=== PATIENT | female | born 1990 | race Two or more races ===

== ENCOUNTER 2024-10-27 19:45 | Emergency (ER) | payer OTHER ==
[~2024-10-27] VITALS: Ht 157.5 cm; Wt 65.8 kg
[2024-10-27 21:20] VITALS: BP 109/78; PULSE 77; RESP 16; TEMP 98.2; O2SAT 98
--- NOTE | 2024-10-27 22:12 | DVH ---
CLINICAL INDICATION: Fall/trauma TECHNIQUE: 3 radiographic views of the right hand were obtained. Comparison: None FINDINGS/IMPRESSION: There is no evidence of acute fracture or dislocation. The visualized joint space is well maintained. The alignment is anatomical. There is no radiopaque foreign body. HS:Y
--- NOTE | 2024-10-27 22:14 | DVH ---
CLINICAL INDICATION: Fall/trauma TECHNIQUE: XY R WRIST 3+ VIEW XRAY Comparison: None FINDINGS: No osseous or joint abnormality with no fracture or dislocation. Joint spaces are normal. IMPRESSION: No abnormality demonstrated.
[2024-10-27] MEDS ORDERED: IBUP-1455 PO (22:49)
--- NOTE | 2024-10-27 22:49 | ED.PDOC ---
Musculoskeletal HPI Comments This patient is a pleasant 34-year-old female who arrives to the ED today for evaluation of right hand pain status post fall yesterday. Patient has a mechanical ground level fall yesterday and landed on her right hand. Patient states it subsequent to that event, she has had pain, swelling and bruising. Patient denies any head trauma. Vital signs were stable on arrival. No blood loss. Chief Complaint: Upper Extremity Time Seen by MD: 20:17 Reviewed Notes: Nurses Notes Allergies: Coded Allergies: Sulfamethoxazole w/Trimethoprim (Verified Allergy, Intermediate, 08/09/13) Information Source: Patient Mode of Arrival: Ambulatory Location: Right Extremity Location: Hand, Wrist Timing: Days Prehospital treatment: None Severity: Moderate Able to Move Extremity: Yes Bear Weight: Fully Pain: Moderate Hand Dominance: Right Mechanism: FOOSH Circumstances: Fall Onset of Symptoms: After Trauma Symptoms: Swelling, Pain DVT Risk Factors: NONE Past Medical History PAST MEDICAL HISTORY: Denies Surgical History: Denies all surgeries OTHER SPORTS COACH OR INSTRUCTOR History: No Pertinent OTHER SPORTS COACH OR INSTRUCTOR History Family History Family History: Unknown Social History Smoker: Non-Smoker Alcohol: Denies ETOH Use Drugs: Denies Drug Use Lives In: Home Constitutional: denies: chills, diaphoresis, fatigue, fever, malaise, sweats, weakness, others EENTM: denies: blurred vision, double vision, ear bleeding, ear discharge, ear drainage, ear pain, ear ringing, eye pain, eye redness, hearing loss, mouth pain, mouth swelling, nasal discharge, nose bleeding, nose congestion, nose mono n, photophobia, tearing, throat pain, throat swelling, voice changes, others Respiratory: denies: cough, hemoptysis, orthopnea, SOB at rest, shortness of breath, SOB with excertion, stridor, wheezing, others Cardiovascular: denies: chest pain, dizzy spells, diaphoresis, Dyspnea on exertion, edema, irregular heart beat, left arm pain, lightheadedness, palpitations, PND, syncope, others Gastrointestinal: denies: abdomen distended, abdominal pain, blood streaked bowels, constipated, diarrhea, dysphagia, difficulty swallowing, hematemesis, melena, nausea, poor appetite, poor fluid intake, rectal bleeding, rectal pain, vomiting, others Genitourinary: denies: abnormal vagina bleeding, burning, dyspareunia, dysuria, flank pain, frequency, hematuria, incontinence, pain, , vagina discharge, urgency, others Neurological: denies: dizziness, fainting, headache, left sided numbness, left sided weakness, numbness, paresthesia, pre-existing deficit, right sided numbness, right sided weakness, seizure, speech problems, tingling, tremors, weakness, others Musculoskeletal: reports: others (Right hand and right wrist pain); denies: back pain, gout, joint pain, joint swelling, muscle pain, muscle stiffness, neck pain Integumetry: denies: bruises, change in color, change in hair/nails, dryness, laceration, lesions, lumps, rash, wounds, others Allergic/Immunocompromised: denies: Difficulty Healing, Frequent Infections, Hives, Itching, others Hematologic/Lymphatic: denies: anemia, blood clots, easy bleeding, easy bruising, swollen glands, others Endocrine: denies: excessive hunger, excessive sweating, excessive thirst, excessive urination, flushing, intolerance to cold, intolerance to heat, unexplained weight gain, unexplained weight loss, others Psychiatric: denies: anxiety, bipolar disorder, depression, hopeless, panic disorder, schizophrenia, sleepless, suicidal, others Physical Exam General Appearance: Mild Distress (Patient is in moderate distress due to wrist pain concerns. Patient declined any pain medication. Patient states that as long she does not move of the hand or wrist), Normal HEENT: Normal ENT Inspection, Pharynx Normal, TMs Normal Neck: Full Range of Motion, Non-Tender, Normal, Normal Inspection Respiratory: Chest Non-Tender, Lungs Clear, No Accessory Muscle Use, No Respiratory Distress, Normal Breath Sounds Cardiovascular: No Edema, No JVD, No Murmur, No Gallop, Normal Peripheral Pul ses, Regular Rate/Rhythm Breast Exam: Deferred Gastrointestinal: No Organomegaly, Non Tender, No Pulsatile Mass, Normal Bowel Sounds, Soft Genitalia: Deferred Pelvic: Deferred Rectal: Deferred Extremities: Other (Patient reveals edema and ecchymosis noted to the right thenar and hypothenar eminence as well as the right thumb extending into the right wrist ventral and mild dorsal aspect. Wound [id number] reduced range of motion throughout. Distal neurovascularly intact.) Neurologic: Alert, No Motor Deficits, Normal Affect, Normal Mood, No Sensory Deficits Cerebellar Function: Normal Reflexes: Normal Skin: Dry, Normal Color, Warm Lymphatic: No Adenopathy Was a procedure done? Was a procedure done?: No Differential Diagnosis EXT Differential Diagnosis: Fracture, Sprain, Contusion, Strain X-Ray, Labs, Meds, VS Vital Signs Date Time Temp Pulse Resp B/P (MAP) Pulse Ox O2 Delivery O2 Flow Rate FiO2 10/27/24 21:20 77 16 98 Room Air* 0 21 10/27/24 21:20 98.2 77 14 109/78 (88) 99 98.2 10/27/24 20:55 98.2 81 12 109/78 (88) 99 98.2 X-Ray, Labs, Meds, VS Comment All studies performed the ED were evaluated by me personally. Imaging studies of the right wrist and hand were unremarkable for any acute fractures. Patient received an Tristen wrap prior to discharge. Advised ibuprofen as needed for symptomatic pain relief as well as ice therapy. Time of 1ST Reevaluation: 22:47 Reevaluation 1ST: Improved Consultation: PCP Patient Education/Counseling: Diagnosis, Treatment Family Education/Counseling: Diagnosis, Treatment Departure 1 Departure Time of Disposition: 22:48 Impression: Primary Impression: Wrist sprain Additional Impression: Hand contusion Disposition: 01 HOME / SELF CARE / HOMELESS Condition: Stable Additional Instructions: Advised pain medication as needed for symptomatic relief as well as ice therapy. e-Prescriptions Ibuprofen Micronized (Ibuprofen) 800 Mg Tab 800 MG PO Q8HP PRN, #30 TAB Prov: HAYES BEACH PAC 10/27/24 Discharged With: Self, Friend Critical Care Note Critical Care Time?: No Stability Stability form required: No Heart Score Heart Score: Heart Score Response (Comments) Value History N/A 0 EKG N/A 0 Age N/A 0 Risk Factors N/A 0 Troponin N/A 0 Total 0 HAYES BEACH PAC October 27, 2024 22:49
== END 2024-10-27 23:38 | disposition home or self-care (01) ==
LOC: ER 19:45
DX: S63.591A Other specified sprain of right wrist, initial encounter (principal); S60.221A Contusion of right hand, initial encounter; Z88.1 Allergy status to other antibiotic agents; Z88.2 Allergy status to sulfonamides; W18.39XA Other fall on same level, initial encounter; Y93.89 Activity, other specified; Y92.89 Other specified places as the place of occurrence of the external cause; Y99.8 Other external cause status
CPT/HCPCS: 73110; 73130

== ENCOUNTER 2025-01-01 16:10 | Emergency (ER) | payer MEDICAID ==
[~2025-01-01] VITALS: Ht 157.5 cm; Wt 64.0 kg
[~2025-01-01 16:10] MED LIST: IBUP-1455 PO
[2025-01-01 16:21] VITALS: BP 119/78; PULSE 73; RESP 16; TEMP 98.7; O2SAT 99
--- NOTE | 2025-01-01 16:33 | ED.PDOC ---
History of Present Illness HPI Comments 34F presents to the ER w/ no prior MHx associated to the c/c of a fall. Pt reports on walking down her stairs with her socks on and at the bottom of the hardwood floors the pt slipped/ fell landing on her left upper extremity for which all happened 2 days ago at 2130. Pt states on having left wrist/ rib pain with bruising on the right side of the rib and left wrist. Denies chills, fever, N/V/D, SOB, CP. Chief Complaint: Fall Injury Time Seen by MD: 16:25 Reviewed Notes: Nurses Notes, Medications, Allergies Allergies: Coded Allergies: Sulfamethoxazole w/Trimethoprim (Verified Allergy, Intermediate, 08/09/13) Home Meds Active Scripts Ibuprofen Micronized (Ibuprofen) 800 Mg Tab, 800 MG PO Q8HP PRN, #30 TAB Prov:HAYES BEACH Alicia PAC 10/27/24 Information Source: Patient Severity: Moderate Timing: Days Duration: Since onset Prehospital treatment: None Past Medical History PAST MEDICAL HISTORY: Denies Surgical History: Denies all surgeries PIPE FITTER MARINE History: No Pertinent PIPE FITTER MARINE History Family History Family History: Reviewed,noncontributory to illness, Unknown Social History Smoker: Non-Smoker Alcohol: Denies ETOH Use Drugs: Denies Drug Use Lives In: Home Constitutional: reports: others (left hand/right side of the rib pain); denies: chills, diaphoresis, fatigue, fever, malaise, sweats, weakness EENTM: denies: blurred vision, double vision, ear bleeding, ear discharge, ear drainage, ear pain, ear ringing, eye pain, eye redness, hearing loss, mouth pain, mouth swelling, nasal discharge, nose bleeding, nose congestion, nose pain, photophobia, tearing, throat pain, throat swelling, voice changes, others Respiratory: denies: cough, hemoptysis, orthopnea, SOB at rest, shortness of breath, SOB with excertion, stridor, wheezing, others Cardiovascular: denies: chest pain, dizzy spells, diaphoresis, Dyspnea on exertion, edema, irregular heart beat, left arm pain, lightheadedness, palpitations, PND, syncope, others Gastrointestinal: denies: abdomen distended, abdominal pain, blood streaked bowels, constipated, diarrhea, dysphagia, difficulty swallowing, hematemesis, melena, nausea, poor appetite, poor fluid intake, rectal bleeding, rectal pain, vomiting, others Genitourinary: denies: abnormal vagina bleeding, burning, dyspareunia, dysuria, flank pain, frequency, hematuria, incontinence, pain, , vagina discharge, urgency, others Neurological: denies: dizziness, fainting, headache, left sided numbness, left sided weakness, numbness, paresthesia, pre-existing deficit, right sided numbness, right sided weakness, seizure, speech problems, tingling, tremors, weakness, others Musculoskeletal: denies: back pain, gout, joint pain, joint swelling, muscle pain, muscle stiffness, neck pain, others Integumetry: denies: bruises, change in color, change in hair/nails, dryness, laceration, lesions, lumps, rash, wounds, others Allergic/Immunocompromised: denies: Difficulty Healing, Frequent Infections, Hives, Itching, others Hematologic/Lymphatic: denies: anemia, blood clots, easy bleeding, easy bruising, swollen glands, others Endocrine: denies: excessive hunger, excessive sweating, excessive thirst, excessive urination, flushing, intolerance to cold, intolerance to heat, unexplained weight gain, unexplained weight loss, others Psychiatric: denies: anxiety, bipolar disorder, depression, hopeless, panic disorder, schizophrenia, sleepless, suicidal, others All Other Systems: Reviewed and Negative Physical Exam General Appearance: No Apparent Distress, Normal HEENT: Normal ENT Inspection, Pharynx Normal, TMs Normal Neck: Full Range of Motion, Non-Tender, Normal, Normal Inspection Respiratory: Chest Non-Tender, Lungs Clear, No Accessory Muscle Use, No Respiratory Distress, Normal Breath Sounds Cardiovascular: No Edema, No JVD, No Murmur, No Gallop, Normal Peripheral Pulses, Regular Rate/Rhythm, Other (Patient with a bruise center of the chest tender on palpation) Breast Exam: Deferred Gastrointestinal: No Organomegaly, Non Tender, No Pulsatile Mass, Normal Bowel Sounds, Soft Genitalia: Deferred Pelvic: Deferred Rectal: Deferred Extremities: No calf tenderness, Normal capillary refill, Normal inspection, Normal range of motion, No pedal edema, Tender (Left forearm with bruising some swelling and tenderness) Musculoskeletal : Apperance: Normal Neurologic: Alert, guitar repairer II-XII nml as Tested, No Motor Deficits, Normal Affect, Normal Mood, No Sensory Deficits Cerebellar Function: Normal Reflexes: Normal Skin: Dry, Normal Color, Warm Lymphatic: No Adenopathy Was a procedure done? Was a procedure done?: No Differential Dx Considerations may include: Rib fracture versus rib contusion, forearm fracture versus forearm contusion X-Ray, Labs, Meds, VS Vital Signs Date Time Temp Pulse Resp B/P (MAP) Pulse Ox O2 Delivery O2 Flow Rate FiO2 01/01/25 16:21 98.7 73 16 119/78 (92) 99 98.7 [place] [address] Ph: [phone] DIAGNOSTIC IMAGING Diagnostic Imaging Report : [id number] Signed PATIENT: STEPHANIE TERESA ACCT: [id number] UNIT: [id number] : 1990 LOC: ER ROOM / BED: / AGE / SEX: 34 / F ADM STATUS: REG ER SERVICE 1624 ORDERING PHYSICIAN: TONY MOYER MACHINE STRIPER PROCEDURE(s): RIBBI - RIBS BILATERAL REASON: fall ORDER NUMBER(s): [id number], ACCESSION NUMBER(s): [id number] XY RIBS BILATERAL, HISTORY: fall COMPARISON: None None TECHNICAL DATA: 1 view of the chest was obtained. 4 views of the bilateral ribs. FINDINGS: Lines and tubes: None Cardiomediastinal silhouette: normal Pulmonary vasculature: normal Lung expansion: normal Lung airspace: normal Lung interstitium: normal Pleura: normal Pneumothorax: no Bones: Unremarkable Other: no IMPRESSION: No acute intrathoracic abnormality. No acute rib fracture seen. ATED BY: MCKINLEY DIETRICH MD DICTATED DATE/TIME: 01/01/251700 SIGNED BY: MCKINLEY DIETRICH MD SIGNED DATE/TIME: 01/01/251700 CC: [address] [address] Ph: [phone] DIAGNOSTIC IMAGING Diagnostic Imaging Report : [id number] Signed PATIENT: STEPHANIE TERESA ACCT: [id number] UNIT: [id number] : 1990 LOC: ER ROOM / BED: / AGE / SEX: 34 / F ADM STATUS: REG ER SERVICE 162 ORDERING PHYSICIAN: TONY MOYER MACHINE STRIPER PROCEDURE(s): LFOR - L FOREARM XRAY REASON: fall ORDER NUMBER(s): [id number], ACCESSION NUMBER(s): [id number] XY L FOREARM XRAY, INDICATION: fall TECHNICAL DATA: Frontal and lateral views were obtained of the left forearm. COMPARISON: None FINDINGS: There is no osseous abnormality. Soft tissues are normal. IMPRESSION: No acute fracture or dislocation. ATED BY: MCKINLEY DIETRICH MD DICTATED DATE/TIME: 01/01/251699 SIGNED BY: MCKINLEY DIETRICH MD SIGNED DATE/TIME: 01/01/251699 CC: X-Ray, Labs, Meds, VS Comment Patient seen and examined by me. Patient has a large bruise on her left forearm as well as some bruising on her ribs have ordered x-rays of both pending those results. Both x-rays came back negative. Patient was told swelling and bruising was slowly resolved in the next week or so. I will give her a prescription for Motrin.. ORDERING PHYSICIAN: TONY MOYER MACHINE STRIPER PROCEDURE(s): RIBBI - RIBS BILATERAL REASON: fall ORDER NUMBER(s): [id number], ACCESSION NUMBER(s): [id number] XY RIBS BILATERAL, HISTORY: fall COMPARISON: None None TECHNICAL DATA: 1 view of the chest was obtained. 4 views of the bilateral ribs. FINDINGS: Lines and tubes: None Cardiomediastinal silhouette: normal Pulmonary vasculature: normal Lung expansion: normal Lung airspace: normal Lung interstitium: normal Pleura: normal Pneumothorax: no Bones: Unremarkable Other: no IMPRESSION: No acute intrathoracic abnormality. No acute rib fracture seen. ATED BY: MCKINLEY DIETRICH MD DICTATED DATE/TIME: 01/01/251700 SIGNED BY: MCKINLEY DIETRICH MD SIGNED DATE/TIME: 01/01/251700 PATIENT: STEPHANIE TERESA ACCT: [id number] UNIT: [id number] : 1990 LOC: ER ROOM / BED: / AGE / SEX: 34 / F ADM STATUS: REG ER SERVICE 1624 ORDERING PHYSICIAN: TONY MOYER PROCEDURE(s): LFOR - L FOREARM XRAY REASON: fall ORDER NUMBER(s): [id number], ACCESSION NUMBER(s): [id number] XY L FOREARM XRAY, INDICATION: fall TECHNICAL DATA: Frontal and lateral views were obtained of the left forearm. COMPARISON: None FINDINGS: There is no osseous abnormality. Soft tissues are normal. IMPRESSION: No acute fracture or dislocation. ATED BY: MCKINLEY DIETRICH MD DICTATED DATE/TIME: 01/01/251699 SIGNED BY: MCKINLEY DIETRICH MD SIGNED DATE/TIME: 01/01/251699 Time of 1ST Reevaluation: 16:55 Reevaluation 1ST: Unchanged Reevaluation 2ND: Improved Patient Education/Counseling: Diagnosis, Treatment, Prognosis Family Education/Counseling: No Family Present SEPSIS Sepsis Screen Physician Orders Ribs Bilateral (01/01/25 16:24) L Forearm Xray (01/01/25 16:24) Vital Signs Date Time Temp Pulse Resp B/P (MAP) Pulse Ox O2 Delivery O2 Flow Rate FiO2 01/01/25 16:21 98.7 73 16 119/78 (92) 99 98.7 Departure 1 Departure Time of Disposition: 17:14 Impression: Primary Impression: Contusion of forearm, left Additional Impression: Rib contusion Disposition: 01 HOME / SELF CARE / HOMELESS Condition: Good Additional Instructions: Both your x-rays do not show any fracture It will take probably another week or so before the bruising is gone it will turn yellow before completely going away Take the Motrin as needed with food for pain and inflammation e-Prescriptions Ibuprofen Micronized (Ibuprofen) 600 Mg Tab 600 MG PO Q6HPRN PRN for 5 Days, #20 TAB Prov: TONY MOYER 01/01/25 Discharged With: Self Critical Care Note Critical Care Time?: No Stability Stability form required: No I personally scribed for ER (EMERGENCY) on 01/01/25 at 16:33. Electronically submitted by Stone Evans ([email or web address]). I personally scribed for ER (EMERGENCY) on 01/01/25 at 17:11. Electronically submitted by Stone Evans ([email or web address]). ER Jan 01, 2025 16:33 TONY MOYER MACHINE STRIPER Jan 01, 2025 16:38
--- NOTE | 2025-01-01 17:02 | DVH ---
XY L FOREARM XRAY, INDICATION: fall TECHNICAL DATA: Frontal and lateral views were obtained of the left forearm. COMPARISON: None FINDINGS: There is no osseous abnormality. Soft tissues are normal. IMPRESSION: No acute fracture or dislocation.
--- NOTE | 2025-01-01 17:04 | DVH ---
XY RIBS BILATERAL, HISTORY: fall COMPARISON: None None TECHNICAL DATA: 1 view of the chest was obtained. 4 views of the bilateral ribs. FINDINGS: Lines and tubes: None Cardiomediastinal silhouette: normal Pulmonary vasculature: normal Lung expansion: normal Lung airspace: normal Lung interstitium: normal Pleura: normal Pneumothorax: no Bones: Unremarkable Other: no IMPRESSION: No acute intrathoracic abnormality. No acute rib fracture seen.
[2025-01-01] MEDS ORDERED: IBUP1TAB5 PO (17:17)
== END 2025-01-01 17:40 | disposition home or self-care (01) ==
LOC: ER 16:10
DX: S50.12XA Contusion of left forearm, initial encounter (principal); S20.219A Contusion of unspecified front wall of thorax, initial encounter; Z88.2 Allergy status to sulfonamides; Z88.1 Allergy status to other antibiotic agents; Z79.899 Other long term (current) drug therapy; W01.0XXA Fall on same level from slipping, tripping and stumbling without subsequent striking against object, initial encounter; Y93.89 Activity, other specified; Y92.89 Other specified places as the place of occurrence of the external cause; Y99.8 Other external cause status
CPT/HCPCS: 71111; 73090